=== PATIENT | female | born 1995 | race African-American/Black ===

== ENCOUNTER 2019-04-09 20:45 | Emergency (ER) | payer OTHER ==
[~2019-04-09] VITALS: Ht 160 cm; Wt 73.5 kg
[2019-04-09 22:06] LABS: ABSOLUTE NEUTROPHILS 2.3 thou/uL (1.4-8.2); BASOPHILS 0.4 % (0.0-2.0); EOSINOPHILS 0.4 % (0.0-3.0); HEMOGLOBIN 12.6 gm/dL (12.0-15.0); LYMPHOCYTES 30.9 % (24.0-44.0); MCH 25.4 pg (26.0-34.0); MCHC 32.4 g/dL (28.0-37.0); MCV 78.3 fL (80.0-100.0); MONOCYTES 8.3 % (1.0-8.0); PLATELET COUNT 239 thou/uL (150-400); RBC 4.98 mil/uL (4.20-5.00); RDW 14.4 % (10.5-14.5); WBC 3.9 thou/uL (4.0-11.0)
[2019-04-09 22:07] LABS: CALCIUM 8.3 mg/dL (8.5-10.1); CREATININE 0.7 mg/dL (0.6-1.0)
[2019-04-09 22:46] LABS: URINE BILIRUBIN NEGATIVE (Negative); URINE BLOOD NEGATIVE (Negative); URINE CLARITY CLEAR; URINE COLOR YELLOW; URINE GLUCOSE-RANDOM* NEGATIVE (Negative); URINE KETONES NEGATIVE (Negative); URINE NITRITE-REFLEX NEGATIVE (Negative); URINE PROTEIN (DIPSTICK) NEGATIVE (Negative); URINE SPECIFIC GRAVITY >= 1.030 (1.005-1.035); URINE UROBILINOGEN 0.2 E.U./dl (0.2-1.0)
[2019-04-09 22:52] LABS: URINE LEUKOCYTES-REFLEX 1+ (Negative)
[2019-04-09 23:00] LABS: MUCUS 4-6 Moderate strn/LPF (None Seen); SQUAMOUS 4-10 Moderate /LPF (0-3); URINE RBC 3-10 Few /HPF (0-2)
[2019-04-09 23:01] LABS: CASTS None Seen /LPF (None Seen); URIC ACID CRYSTALS 0-3 Few /LPF (None Seen)
[2019-04-10] MEDS ORDERED: BENTYL 20 MG TA20 M1 PO (00:36)
[2019-04-10 01:20] VITALS: BP 127/87
== END 2019-04-10 01:22 | disposition home or self-care (01) ==
LOC: ER 20:45
PROVIDERS: Physician Assistant; Student in an Organized Health Care Education/Training Program
DX: K52.9 Noninfective gastroenteritis and colitis, unspecified (principal); J45.909 Unspecified asthma, uncomplicated; K21.9 Gastro-esophageal reflux disease without esophagitis

== ENCOUNTER 2019-04-20 21:25 | Emergency (ER) | payer OTHER ==
[~2019-04-20] VITALS: Ht 160 cm; Wt 78.0 kg
[~2019-04-20 21:25] MED LIST: BENTYL 20 MG TA20 M1 PO
[2019-04-20 21:28] VITALS: BP 123/80
[2019-04-20 22:08] LABS: URINE CLARITY CLEAR
[2019-04-20 22:09] LABS: ICTOTEST (BILI CONFIRMATORY) Negative (Negative); SSA (PROTEIN CONFIRMATORY) NEGATIVE (Negative); URINE REDUCING SUBSTANCE NEGATIVE
[2019-04-20 22:10] LABS: URINE COLOR ORANGE
[2019-04-20 22:14] LABS: CASTS None Seen /LPF (None Seen); MUCUS None Seen strn/LPF (None Seen); SQUAMOUS 0-3 Few /LPF (0-3); URINE RBC >20 Many /HPF (0-2)
[2019-04-20 22:15] LABS: CRYSTALS None Seen /LPF (None Seen)
[2019-04-20] MEDS ORDERED: PHENAZOPYRIDIN200 M2 PO (22:17)
[2019-04-20] MEDS ORDERED: KEFLEX500 M1 PO (22:17)
== END 2019-04-20 22:24 | disposition home or self-care (01) ==
LOC: ER 21:25
PROVIDERS: Physician Assistant
DX: N39.0 Urinary tract infection, site not specified (principal)